=== PATIENT | female | born 1990 | race Caucasian/White ===

== ENCOUNTER 2017-12-05 15:45 | Emergency (ER) | payer MEDICAID ==
[~2017-12-05] VITALS: Ht 157.5 cm; Wt 63.5 kg
[2017-12-05 15:52] VITALS: BP 126/67
[2017-12-05 18:04] VITALS: BP 126/67
== END 2017-12-05 18:05 | disposition home or self-care (01) ==
LOC: MED 15:45
DX: R53.1 Weakness (principal); R51 Headache; R42 Dizziness and giddiness; E05.00 Thyrotoxicosis with diffuse goiter without thyrotoxic crisis or storm; Z88.1 Allergy status to other antibiotic agents
CPT/HCPCS: 99281